=== PATIENT | male | born 1970 | race Caucasian/White ===

== ENCOUNTER 2017-08-02 17:41 | Emergency (ER) | payer OTHER ==
[~2017-08-02] VITALS: Ht 190.5 cm; Wt 113.4 kg
[2017-08-02] MEDS ORDERED: Percocet 5-3251 EACH PO (20:28)
[2017-08-02] MEDS ORDERED: IBUP600 PO (20:28)
== END 2017-08-02 21:30 | disposition home or self-care (01) ==
LOC: ER 17:41
DX: S52.531A Colles' fracture of right radius, initial encounter for closed fracture (principal); Z88.2 Allergy status to sulfonamides; Z88.1 Allergy status to other antibiotic agents; W01.0XXA Fall on same level from slipping, tripping and stumbling without subsequent striking against object, initial encounter
CPT/HCPCS: 25680; 73100; 99283